=== PATIENT | male | born 1975 | race Caucasian/White ===

== ENCOUNTER 2019-05-06 13:53 | Outpatient (RCR) | payer OTHER, SELFPAY ==
--- NOTE | 2019-05-06 14:47 | PTOPEVAL ---
Thank you for referring this patient to [facility]. Please review, sign, date and return this plan of care [facility]. I agree with and certify that the following plan of care is medically necessary. Referring Physician Date Admitting Provider: Attending Provider: Ana Henriquez, SALES MANAGEMENT TRAINEE Referring Provider: *PT Outpatient Evaluation Start: 05/06/19 14:11 Freq: Status: Active Protocol: Document 05/06/19 14:10 J (Rec: 05/06/19 14:32 [facility] [id number]) Therapy Assessment Status Assessment Status Assessment Status Evaluation Evaluation Information Problem Diagnosis cervicalgia with radicaular R arm pain/numbness Onset 04/28/19 Subjective Information patient reports he has been Query Text:As Reported By Patient/ having pain and symptoms in Family the neck and into the R arm for about 15 years or more. he reports he does have a bluging disc in the neck and has had positive treatment with injection in the past. he reports he has had ulnar nerve surgery of the R hand. he has constant numbness in the small 3 digits of the r hand. he reports increased pain in the neck with sitting, prolonged positions, and increased head movements/ activity. he reports the neck feels stiff all the time. Prior Level of Function Comments Additional Prior Level of Function he reports he has been dealing Comments with neck pain for about 15 year. he reports he had no change in activity recently, but has had increased symptoms in the neck for about 6 months. he reports he is dropping items out of his R hand frequently. Pain Assessment Timing of Pain Assessment Timing of Pain Assessment Assessment Pain Scale Pain Scale Used Numeric (1 - 10) Self Report Pain Assessment Neck Reported Pain Level 4 Pain Description Tightness Pain Radiation Right Arm Radicular Pain Location r hand and fingers Pain Frequency Chronic,Continuous Current Pain Intensity 4 Lowest Pain Intensity 2
== END 2019-06-08 08:37 | disposition home or self-care (01) ==
LOC: CHSPT 13:53
PROVIDERS: PCP Nurse Practitioner Adult Health; Visit Provider Nurse Practitioner Adult Health
DX: M54.2 Cervicalgia (principal)
CPT/HCPCS: 97014; 97110; 97140; 97161; G0283

== ENCOUNTER 2019-07-07 15:04 | Outpatient (CLI) | payer OTHER, SELFPAY ==
--- NOTE | ~2019-07-07 | US_ITS ---
EXAMINATION: US renal BI DATE: 07/07/2019 15:33 INDICATION: Calculus of kidney. TECHNIQUE: Multiple ultrasound grayscale images of the kidneys were obtained. COMPARISON: CT abdomen and pelvis 07/07/2019 FINDINGS: The right kidney measures 11.2 x 5.1 x 4.8 cm. The left kidney measures 10.8 x 5.9 x 6.1 cm. The kidn eys demonstrate normal parenchymal echogenicity. There is no hydronephrosis. The bladder is normal. T here is diffuse hepatic steatosis. IMPRESSION: 1. Normal kidneys. No hydronephrosis. 2. Diffuse hepatic steatosis. Reviewed, dictated and finalized at location A.
--- NOTE | ~2019-07-07 | CT_ITS ---
EXAMINATION: CT abdomen pelvis wo con DATE: 07/07/2019 16:06 INDICATION: Right flank pain. TECHNIQUE: Computed tomography (CT) of the abdomen and pelvis was performed without intravenous contr ast. Automated exposure control and iterative reconstruction technique were employed. The dose-length product was 529.46 mGy-cm. COMPARISON: CT abdomen and pelvis 12/17/2017 FINDINGS: The visualized portions of the lung bases demonstrate mild atelectasis. There is a pneumato vanessa in right lower lobe. No pleural effusion. The heart size is normal. No pericardial effusion. The liver and gallbladder are normal. There is a 2.2 cm cyst in the spleen. The pancreas, adrenal glands , and right kidney are normal. There is a 1 mm stone in left kidney. There is a 5 mm cyst in left kid detxer. The prostate is mildly enlarged. There are no pathologically enlarged lymph nodes. There is no f ree intraperitoneal fluid. There is mild thoracic spondylosis and moderate lower lumbar spondylosis. IMPRESSION: 1. 1 mm nonobstructing left kidney stone. Reviewed, dictated and finalized at location A.
== END 2019-07-07 15:05 | disposition home or self-care (01) ==
PROVIDERS: PCP Family Medicine; Visit Provider Family Medicine
DX: N20.0 Calculus of kidney (principal); M54.5 Low back pain
CPT/HCPCS: 74176; 76775

== ENCOUNTER 2019-07-08 17:48 | Emergency (ER) | payer OTHER, SELFPAY ==
--- NOTE | 2019-07-08 18:05 | ED.BACK ---
HPI - Back Pain/Injury General Chief Complaint: Urogenital-Male Stated Complaint: kidney stone pain Time Seen by Provider: 07/08/19 18:05 Source: patient Mode of arrival: ambulatory Limitations: no limitations History of Present Illness HPI Narrative: 43-year-old man with history of urolithiasis comes in today complaining of right-sided back pain that has been present for the last several days. Patient states that he saw his doctor yesterday and had a workup. He states that he was told that his pain might be from a kidney stone or cyst on his kidney. With workup yesterday revealed a 1 mm stone and a 5 mm cyst on his left kidney. He denies nausea, vomiting, fever, hematuria, diarrhea and testicular pain. MD elicited complaint: back pain Pertinent past history: prior back pain and kidney stones Onset (ago): day(s) (3-4) Timing: constant Severity: severe Quality: sharp Location: right lower back Radiation: none Exacerbating factors: movement Relieving factors: none Related Data Home Medications Medication Instructions Recorded Confirmed atorvastatin 40 mg tablet 40 mg PO DAILY tablet 07/07/19 07/08/19 hydrocodone 7.5 mg-acetaminophen 1 tablet PO BID PRN tablet 07/07/19 07/08/19 325 mg tablet pregabalin 150 mg capsule 150 mg PO BID cap 07/07/19 07/08/19 Allergies Allergy/AdvReac Type Severity Reaction Status Date / Time No Known Allergies Allergy Verified 07/07/19 14:37 Review of Systems Constitutional: Constitutional: Denies chills, Denies fatigue, Denies fever(s) and Denies weakness Eyes: Eyes: Denies change in vision and Denies photophobia ENT: Denies dysphagia, Denies nasal congestion and Denies sore throat Cardiovascular: Cardiovascular: Denies chest pain and Denies radiating jaw, neck or arm pain Respiratory: Respiratory: Denies cough, Denies dyspnea and Denies wheezing Gastrointestinal: Gastrointestinal: Denies abdominal pain, Denies diarrhea, Denies nausea and Denies vomiting Genitourinary: Genitourinary: Denies hematuria, Denies dysuria and Denies urinary frequency Musculoskeletal: Musculoskeletal: Reports as per HPI, Denies arthralgias and Denies joint swelling Integumentary/Breasts: Skin/Breast: Denies pruritus, Denies erythema and Denies rash Neurologic: Denies vertigo, Denies dizziness and Denies syncope Endocrine: Endocrine: Denies excessive sweating and Denies polydipsia Hematologic/Lymphatic: Hematologic/Lymphatic: Denies easy bleeding and Denies easy bruising Allergic/Immunologic: Allergic/Immunologic: Denies lip swelling and Denies wheezing [facility] Social History Social History Smoking packs per day: 1 Smoking cigarettes per day: 20.0 Smoking status: Current every day smoker Alcohol intake: current Substance use: never Substance use type: does not use Exam Const: General: healthy appearing and alert Orientation/consciousness: patient oriented x3 Limitations: no limitations Other: Moderate acute distress HENMT: Mouth: Yes moist mucous membranes Eyes: Conjunctivae: conjunctivae normal Pupils: Equal, round and reactive pupils present EOM: EOMs intact bilaterally Resp: Effort & Inspection: normal respiratory effort and not labored Auscultation: clear to auscultation bilaterally, no rales, no rhonchi and no wheezes Cardio: Rate: regular rate Rhythm: regular rhythm Heart sounds: no murmurs GI: Inspection: non-distended Auscultation: normal bowel sounds Other: No tenderness, mass, small. No kidney tenderness bilaterally. Skin: General skin exam: normal color, no jaundice and no pallor Rashes: no rashes Neuro: General: patient oriented x3, moves all extremities, no focal motor deficits and CN's II-XI intact bilaterally Extrem: General: normal to inspection and clubbing, cyanosis or edema noted Psych: Appearance: grossly normal and well kempt Mental Status: mental status grossly normal Affect: n
[2019-07-08 18:06] VITALS: BP 129/68; PULSE 83; RESP 20; TEMP 36.9; O2SAT 94
[2019-07-08] MEDS: KETOROLAC (*BKC) 60 MG/2 ML VIAL IM (18:20)
[2019-07-08 18:25] LABS: Basophils Absolute Auto 0.03 K/mm3 (0.00-0.10); Basophils Percent Auto 0.4 % (0.0-1.0); Eosinophils Absolute Auto 0.24 K/mm3 (0.02-0.50); Eosinophils Percent Auto 2.9 % (1.0-6.0); Hematocrit 41.3 % (40.0-54.0); Hemoglobin 13.8 g/dL (14.0-18.0); Immature Granulocyte Absolute 0.02 K/mm3 (0.00-0.00); Immature Granulocyte Percent A 0.2 % (0.0-0.0); Lymphocytes Absolute Auto 2.08 K/mm3 (1.10-4.50); Lymphocytes Percent Auto 25.5 % (18.0-42.0); Mean Corpuscular HGB Conc 33.4 g/dL (32.0-36.0); Mean Corpuscular Hemoglobin 30.2 pg (27.0-31.0); Mean Corpuscular Volume 90.4 fL (78.0-102.0); Mean Platelet Volume 11.1 fl (8.7-11.0); Monocytes Absolute Auto 0.54 K/mm3 (0.10-0.90); Monocytes Percent Auto 6.6 % (2.0-11.0); Neutrophils Absolute Auto 5.3 K/mm3 (1.7-7.2); Neutrophils Percent Auto 64.4 % (50.0-70.0); Platelet Count Result 169 K/mm3 (150-420); Red Blood Count 4.57 M/mm3 (4.70-6.10); Red Cell Distribution Width 13.5 % (11.6-14.4); White Blood Count 8.2 K/mm3 (4.8-10.8)
[2019-07-08 18:40] LABS: Alanine Aminotransferase 28 U/L (16-63); Albumin Level 3.3 g/dL (3.4-5.0); Alkaline Phosphatase 92 U/L (46-116); Anion Gap 11.3 mmol/L (7-16); Aspartate Amino Transferase 22 U/L (15-37); Bilirubin,Total 0.5 mg/dL (0.00-1.00); Blood Urea Nitrogen 17 mg/dL (7-18); Calcium 8.7 mg/dL (8.5-10.1); Carbon Dioxide 26 mmol/L (21-32); Chloride 107 mmol/L (98-108); Estimated CRCL calculation 100 ml/min; Estimated Glomerular Filt Rate > 60; Glucose 87 mg/dL (70-99); Osmolality Calculated 290 mOsm/kg (285-295); Potassium 4.3 mmol/L (3.5-5.1); Sodium 140 mmol/L (136-145); Total Protein 6.1 g/dL (6.4-8.2)
[2019-07-08 18:41] LABS: CRP 0.5 mg/dL (0.0-0.9)
[2019-07-08 19:08] LABS: Add Urine Microscopic? NO; Appearance Urine Clear (Clear); Bilirubin Urine Negative (Negative); Blood Urine Negative (Negative); Color Urine Yellow (Yellow); Glucose Urine UA Negative (Negative); Ketones Urine Negative (Negative); Leukocyte Esterase Ur Negative (Negative); Nitrate Urine Negative (Negative); Protein Urine Negative (Negative); Specific Grav Ur 1.015 (1.010-1.020); Urobilinogen Urine 0.2 mg/dL (0.2-1.0)
[2019-07-08 19:28] VITALS: BP 122/71; PULSE 75; RESP 18; O2SAT 99
== END 2019-07-08 19:28 | disposition home or self-care (01) ==
PROVIDERS: Emergency Provider Emergency Medicine; PCP Family Medicine
DX: M54.5 Low back pain (principal)
CPT/HCPCS: 36415; 80053; 81003; 85025; 86140; 96372; 99283; J1885

== ENCOUNTER 2019-12-21 13:41 | Outpatient (RCR) | payer OTHER, SELFPAY ==
--- NOTE | 2019-12-21 15:04 | PTOPEVAL ---
Thank you for referring Milton Strickland to [facility].? The patient is scheduled to be seen for therapy? ____x/week for ___ weeks. Please review, sign, date and return this plan of care WILL[facility]. I agree with and certify that the following plan of care is medically necessary. Referring Physician Date Admitting Provider: Attending Provider: Ana Henriquez, SUPERVISOR ADULT EDUCATION Referring Provider: *PT Outpatient Evaluation Start: 12/21/19 13:51 Freq: Status: Active Protocol: Document 12/21/19 13:54 MARK (Rec: 12/21/19 14:33 [facility] [id number]) Therapy Assessment Status Assessment Status Assessment Status Evaluation Outpatient Past Medical History Cardiovascular History Hx Hypercholesterolemia Yes Musculoskeletal History Hx Back Pain Yes Evaluation Information Problem Diagnosis low back pain Onset 12/16/19 Additional Evaluation Detail Oswestry=64% limitation Subjective Information Pt. reports that he has hx of Query Text:As Reported By Patient/ chronic low back pain. He has Family had 2 surgeries in the past consisting of disectomy and scrapping bone spurs. He reports that he is currently undergoing pain management for his chronic low back pain. He describes pain located in the middle of the low back. He states standing or sitting in one position will increase his pain. He reports pain is constant. He states that he enjoys fishing but cannot stand for more than 45 minutes before experincing intense back pain. He reports that his goal is to decrease is low back pain. 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
--- NOTE | 2020-01-26 09:59 | PTOPEVAL ---
Thank you for referring Milton Strickland to [facility].? The patient is scheduled to be seen for therapy? ____x/week for ___ weeks. Please review, sign, date and return this plan of care WILLY. I agree with and certify that the following plan of care is medically necessary. Referring Physician Date Admitting Provider: Attending Provider: Ana Henriquez, HOTBED LEVER OPERATOR Referring Provider: *PT Outpatient Evaluation Start: 12/21/19 13:51 Freq: Status: Discharge Protocol: Document 01/16/20 09:55 MARK (Rec: 01/16/20 11:04 MARK [email or web address]) Therapy Assessment Status Assessment Status Assessment Status Discharge Outpatient Past Medical History Cardiovascular History Hx Hypercholesterolemia Yes Musculoskeletal History Hx Back Pain Yes Evaluation Information Problem Diagnosis low back pain Onset 12/16/19 Subjective Information Pt. reports that pain Query Text:As Reported By Patient/ intensity has slightly Family decreased. He reports that exercise helps to reduce pain signficantly. He states he has returned to fishing with improved comfort. Pain Assessment Pain Scale Pain Scale Used Numeric (1 - 10) Self Report Pain Assessment Lower Back Reported Pain Level 5 Greatest Pain Intensity 5 Pain Score Pain Score 5: Self Report Cervical and Lumbar ROM Lumbar ROM Lumbar Flexion Active Ankle Query Text:Hands to: Lumbar Extension (0-40) 10 Query Text:Active in Degrees Cervical and Lumbar Muscle Testing Lumbar Strength Upper Abdominal Strength 4 Good Lower Abdominal Strength 3+Fair+ Lower Extremity Muscle Strength Testing General Lower Extremity Strength Gross Lower Extremity Strength bilateral hip flexion 5/5 bilateral hip abduction 4+/5 bilateral knee flexion 5/5 bilateral knee extension 5/5 bilateral ankle dorsiflexon 5/ 5 Muscle Length Testing Muscle Length Testing Left Hamstring Length 20 Query Text:(90 - 90 Position) Right Hamstring Length 20 Query Text:(90 - 90 Position) Gait Assessment Gait Assessment Additional Ambulation Comments Pt. ambulates without deviation on this date. General Exercise General Exercises Exercise Description -bird dog on stability ball x Query Text:Record Sets, Reps, 10 bilateral Resistance, and Position -pot stirrers x 30 bilateral -HS stretch x 2 minutes
== END 2020-01-16 13:07 | disposition home or self-care (01) ==
LOC: CHSPT 13:41
PROVIDERS: Visit Provider Nurse Practitioner Adult Health
DX: M47.816 Spondylosis without myelopathy or radiculopathy, lumbar region (principal)
CPT/HCPCS: 97014; 97110; 97161; G0283

== ENCOUNTER 2019-12-28 10:50 | Outpatient (CLI) | payer OTHER, SELFPAY ==
--- NOTE | ~2019-12-28 | XR_ITS ---
XR lumbar spine 2-3V 12/28/2019 11:24 Indication: Spondylosis Procedure: 4 views lumbar spine Comparison: No prior studies for comparison. Findings: Mild levocurvature of the lumbar spine. There is disc narrowing at all lumbar levels. No ev idence for spondylolisthesis. No acute fracture or traumatic malalignment. Pedicles intact. Impression: 1: Mild lumbar spondylosis. Reviewed, dictated and finalized at location B. Impression: 1: Mild lumbar spondylosis.
== END 2019-12-28 10:51 | disposition home or self-care (01) ==
PROVIDERS: PCP Family Medicine; Visit Provider Nurse Practitioner Adult Health
DX: M47.816 Spondylosis without myelopathy or radiculopathy, lumbar region (principal)
CPT/HCPCS: 72100

== ENCOUNTER 2022-03-24 13:08 | Emergency (ER) | payer OTHER, SELFPAY ==
--- NOTE | ~2022-03-24 | CT_ITS ---
EXAMINATION: CT lumbar spine wo con DATE: 03/24/2022 14:14 INDICATION: Worsened chronic low back pain. TECHNIQUE: Computed tomography (CT) of the lumbar spine was performed without intravenous contrast. A utomated exposure control and iterative reconstruction technique were employed. The dose-length produ ct was 1520.77 mGy-cm. COMPARISON: Lumbar spine radiographs 12/28/2019 FINDINGS: There is 3 mm retrolisthesis of L2 on L3, L3 on L4, and L4 on L5. There are Schmorl's nodes at multiple levels. There is mildly decreased disc height at L1-L2 and L2-L3 and moderately decrease d disc height from L3-L4 through L5-S1 with endplate remodeling. The following disc levels are specif ically discussed: L1-L2: The disc is bulging. There is mild bilateral facet joint osteoarthritis. There is mild bilater al neural foraminal stenosis. There is mild central canal stenosis. L2-L3: The disc is bulging. There is mild bilateral facet joint osteoarthritis. There is mild bilater al neural foraminal stenosis. There is mild central canal stenosis. L3-L4: The disc is bulging. There is moderate bilateral facet joint osteoarthritis. There is moderate bilateral neural foraminal stenosis. There is mild central canal stenosis. L4-L5: The disc is bulging. There is severe bilateral facet joint osteoarthritis. There is moderate b ilateral neural foraminal stenosis. There is mild central canal stenosis with posterior decompression . L5-S1: The disc is bulging. There is severe bilateral facet joint osteoarthritis. There is moderate b ilateral neural foraminal stenosis. There is no central canal stenosis. IMPRESSION: 1. Moderate lumbar spondylosis. Reviewed, dictated and finalized at location A. L PAINTER
[2022-03-24 13:20] VITALS: BP 113/84; PULSE 87; RESP 16; TEMP 36.6; O2SAT 97
--- NOTE | 2022-03-24 13:32 | ED.BACK ---
HPI - Back Pain/Injury General Chief Complaint: Back Pain/Injury Stated Complaint: back pain possible kidney stone Time Seen by Provider: 03/24/22 13:31 Source: patient Mode of arrival: ambulatory History of Present Illness HPI Narrative: 46-year-old male with a history of chronic low back pain, status post diskectomy L3/4 and L4/5 in 2016 with chronic paresthesias of the lower extremities presents with -- low back pain which radiates to either side. No radiation of the pain to the lower extremities. No new paresthesias of the lower extremities. No bladder or bowel involvement. The patient has had intermittent low back pain but this current episode is much more painful. History of kidney stones. No fever or chills. MD elicited complaint: back pain Pertinent past history: prior back pain and kidney stones Onset (ago): day(s) ( chronic pain with worsening over the past 2 days.) Timing: constant Severity: severe Similar Symptoms Previously: Yes Quality: aching Location: lumbar spine Radiation: left upper leg and right upper leg Exacerbating factors: movement Relieving factors: immobilization Associated symptoms: denies other symptoms Work related injury: No Related Data Allergies Allergy/AdvReac Type Severity Reaction Status Date / Time No Known Allergies Allergy Verified 03/24/22 13:33 Review of Systems Review of Systems: All systems reviewed & are unremarkable except as noted in HPI and below Constitutional: Constitutional: Reports as per HPI and Reports no additional constitutional complaints Eyes: Eyes: Reports as per HPI and Reports no additional eye complaints ENT: Reports system reviewed and no additional complaints, except as documented and Reports as per HPI Cardiovascular: Cardiovascular: Reports as per HPI and Reports no additional cardiovascular complaints Respiratory: Respiratory: Reports as per HPI and Reports no additional respiratory complaints Gastrointestinal: Gastrointestinal: Reports as per HPI and Reports no additional gastrointestinal complaints Genitourinary: Genitourinary: Reports no additional male genitourinary complaints and Reports as per HPI Musculoskeletal: Musculoskeletal: Reports no additional musculoskeletal complaints, Reports as per HPI and Reports back pain Comments: Low back pain with chronic paresthesias of lower extremities Integumentary/Breasts: Skin/Breast: Reports system reviewed and no additional complaints, except as docu and Reports as per HPI Neurologic: Reports system reviewed and no additional complaints, except as documented and Reports as per HPI Endocrine: Endocrine: Reports no additional endocrine complaints and Reports as per HPI Hematologic/Lymphatic: Hematologic/Lymphatic: Reports no additional hematologic/lymphatic complaints and Reports as per HPI Allergic/Immunologic: Allergic/Immunologic: Reports no additional allergic/immunologic complaints and Reports as per HPI PMFSH Past Medical History Medical History (Updated 03/24/22 @ 15:17 by Costa Pope MD) Cubital tunnel syndrome on right Kidney stones, calcium oxalate Surgical History Surgical History History of back surgery History of hip surgery Family History Family History Mother Family history of type 2 diabetes mellitus Social History Social History Smoking packs per day: 1 Smoking cigarettes per day: 20.0 Smoking status: Current every day smoker Alcohol intake: current Substance use: never Substance use type: does not use Exam Const: General: healthy appearing and no acute distress Nutritional Appearance: well nourished Orientation/consciousness: patient oriented x3 Limitations: no limitations HENMT: Head: normal to inspection Ears: external ears normal Face/Nose/Sinus: Normal external no
[2022-03-24] MEDS: MORPHINE SULFATE (*CRX) 4 MG/ML INJ IM (13:53)
[2022-03-24] MEDS: ONDANSETRON HCL ODT 4 MG TABLET PO (13:54)
[2022-03-24 14:51] LABS: Add Urine Microscopic? NO; Appearance Urine Clear (Clear); Bilirubin Urine Negative (Negative); Blood Urine Negative (Negative); Color Urine Light Yellow (Yellow); Glucose Urine UA Negative (Negative); Ketones Urine Negative (Negative); Leukocyte Esterase Ur Negative LEU/UL (Negative); Nitrate Urine Negative (Negative); Protein Urine Negative (Negative)
[2022-03-24] MEDS: KETOROLAC 30 MG/ML VIAL (*BKC) IM (15:20)
== END 2022-03-24 15:33 | disposition home or self-care (01) ==
PROVIDERS: Emergency Provider Internal Medicine Critical Care Medicine
DX: M54.50 Low back pain, unspecified (principal); M47.816 Spondylosis without myelopathy or radiculopathy, lumbar region
CPT/HCPCS: 72131; 81003; 96372; 99284; A9270; J1885; J2270

== ENCOUNTER 2022-03-27 13:25 | Outpatient (CLI) | payer OTHER, SELFPAY ==
[2022-03-27 13:40] LABS: Hematocrit 46.6 % (40.0-54.0); Hemoglobin 15.6 g/dL (14.0-18.0); Mean Corpuscular HGB Conc 33.5 g/dL (32.0-36.0); Mean Corpuscular Hemoglobin 30.2 pg (27.0-31.0); Mean Corpuscular Volume 90.3 fL (78.0-102.0); Mean Platelet Volume 11.3 fl (8.7-11.0); Platelet Count Result 213 K/mm3 (150-420); Red Blood Count 5.16 M/mm3 (4.70-6.10); White Blood Count 15.8 K/mm3 (4.8-10.8)
[2022-03-27 14:15] LABS: Alanine Aminotransferase 25 U/L (16-63); Albumin Level 3.8 g/dL (3.4-5.0); Alkaline Phosphatase 87 U/L (46-116); Anion Gap 7 mmol/L (8-16); Aspartate Amino Transferase 15 U/L (15-37); Bilirubin,Total 0.6 mg/dL (0.00-1.00); Blood Urea Nitrogen 17 mg/dL (7-18); Carbon Dioxide 29 mmol/L (21-32); Chloride 104 mmol/L (98-108); Cholesterol 217 mg/dL (0-200); Estimated Glomerular Filt Rate > 60; Glucose 88 mg/dL (70-99); HDL Direct 53 mg/dL (40-60); LDL Cholesterol Calculated 150 mg/dL (<130); Osmolality Calculated 290 mOsm/kg (285-295); Potassium 4.4 mmol/L (3.5-5.1); Sodium 140 mmol/L (136-145); Triglycerides 69 mg/dL (0-150)
== END 2022-03-27 13:26 | disposition home or self-care (01) ==
LOC: CHSLAB 13:27
PROVIDERS: PCP Family Medicine; Visit Provider Family Medicine
DX: Z00.00 Encounter for general adult medical examination without abnormal findings (principal)
CPT/HCPCS: 36415; 80053; 80061; 85027

== ENCOUNTER 2022-03-29 08:09 | Outpatient (CLI) | payer OTHER, SELFPAY ==
--- NOTE | ~2022-03-29 | MR_ITS ---
EXAMINATION: MR lumbar spine wo con DATE: 03/29/2022 11:05 INDICATION: Low back pain TECHNIQUE: Magnetic resonance imaging (MRI) of the lumbar spine was performed without intravenous con trast. Sequences included sagittal T2-weighted FSE, sagittal T2-weighted FS FSE, sagittal T1-weighted FSE, and axial T2-weighted FSE. COMPARISON: Lumbar spine CT dated 03/24/2022 FINDINGS: Again seen is 203 mm retrolisthesis L2 on L3, L3 on L4 and L4 on L5. Vertebral body heights are lucila l. Normal marrow signal. Mild disc height loss at L2-L3 and moderate disc height loss at L3-L4, L4-L 5 and L5-S1. The conus medullaris terminates at L1. There is normal signal in the caudal spinal cord. Paravertebral soft tissues are unremarkable. The following disc levels are specifically discussed: T12-L1: The disc does not extend beyond the endplate margin. There is mild bilateral facet joint oste oarthritis. There is no neural foraminal stenosis. There is no central canal stenosis. L1-L2: Disc is mildly bulging. There is mild bilateral facet joint osteoarthritis. There is mild bila teral neural foraminal stenosis. There is mild central canal stenosis. L2-L3: Disc is bulging. There is mild bilateral facet joint osteoarthritis. There is moderate right a nd mild left neural foraminal stenosis. There is mild central canal stenosis. L3-L4: Disc is bulging. There is moderate bilateral facet joint osteoarthritis. There is moderate moses ateral neural foraminal stenosis. There is mild central canal stenosis. L4-L5: Disc is bulging. There is moderate to severe bilateral facet joint osteoarthritis. There is mo derate right and moderate to severe left neural foraminal stenosis. There is mild central canal steno sis. L5-S1: Disc is mildly bulging. There is moderate right and moderate to severe left facet joint osteoa rthritis. There is moderate right and moderate to severe left neural foraminal stenosis. There is no central canal stenosis. IMPRESSION: 1. Moderate lumbar spondylosis. Reviewed, dictated and finalized at location B. EYING TECHNICIAN
== END 2022-03-29 08:10 | disposition home or self-care (01) ==
LOC: CHSIMG 08:10
PROVIDERS: PCP Family Medicine; Visit Provider Family Medicine
DX: G89.29 Other chronic pain (principal); M54.9 Dorsalgia, unspecified; M43.06 Spondylolysis, lumbar region
CPT/HCPCS: 72148

== ENCOUNTER 2022-03-31 07:54 | Outpatient (RCR) | payer OTHER, SELFPAY ==
--- NOTE | 2022-03-31 07:59 | PTOPEVAL1 ---
Assessment and note entered by JT File, PT Evaluation Information Assessment Status Evaluation Diagnosis dorsalgia Onset 02/11/22 Subjective Information patient reports he is coming to therapy for pain in his lower back. he reports a few years ago he had therapy for the lower jagdish after tweaking it. he reports he has since tweaked it again, and it is now worse. he reports he has a new set of CT and MRI in the system. 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 he reports he has increased pain in the lower back as the day goes on. he reports porlonged standing and sitting will both bother him. he has had 2 mircodiscectomies in the past. he reports currently he has numbness and tingling down the L LE. he reports these symptoms are constant in the L LE. Reported Pain Level Pain Score 6: Self Report Assessment PT Clinical Summary mr. santa presents to skilled PT services for evaluation and treatment of a flare up of lower back pain from DDD. he presents this date with deficits in lumbar rom, core strength, L LE strength, sensation changes in the L upper thigh, and pain in the lower back and L LE. he would do well to attend skilled PT to improve his objective /functional deficits and progerss towards a return to his prior level functional performance and quality of life. Plan of Care Interventions Electrical Stimulation,Gait Training,Hot Pack/Cold Pack,Manual Therapy,Neuro Re-education,Patient/ Caregiver Educati,Therapeutic Activities, Therapeutic Exercise PT Services Indicated Yes Treatment Frequency and 2x weekly for 12 visits Duration These treatments will address the objective and functional deficits as defined above. The patient will be advanced safely and appropriately in order for the patient to progress towards his/her prior level of function. Additional exercises will be introduced and as well as a comprehensive home exercise program upon discharge, if needed, ?to ensure carryover of functional gains achieved in the clinic. This treatment plan has been reviewed and agreement upon by the patient.
== END 2022-05-06 10:07 | disposition home or self-care (01) ==
LOC: CHSPT 07:54
PROVIDERS: PCP Family Medicine; Visit Provider Family Medicine
DX: M54.9 Dorsalgia, unspecified (principal); G89.29 Other chronic pain
CPT/HCPCS: 97012; 97014; 97110; 97140; 97161; G0283

== ENCOUNTER 2022-05-22 02:20 | Day surgery (SDC) | payer OTHER, SELFPAY ==
[2022-05-16 14:10] VITALS: BMI 29.0
[2022-05-22 07:46] VITALS: BP 108/59; PULSE 104; RESP 17; TEMP 36.2; O2SAT 99; BMI 28.3
[2022-05-22] MEDS: LACTATED RINGERS 1,000 ML 150 ML IV CONT (07:56)
--- NOTE | 2022-05-22 08:10 | WPDANESEPPF ---
Anes - Initial Pre Proc Eval Procedure: Operation Date: 05/22/22 08:30 Proposed Procedures p Colonoscopy - Nikita Figueroa DO Date/Time: 05/22/22 08:10 Surgeon: Nikita Figueroa DO Pre Op Diagnosis: positive cologuard Patient Data Age: 46 Gender: M Height: 1.98 m Weight: 111 kg Last Vital Signs Temp 36.2 C L 05/22/22 07:46 Pulse 104 H 05/22/22 07:46 Resp 17 05/22/22 07:46 BP 108/59 L 05/22/22 07:46 Pulse Ox 99 05/22/22 07:46 O2 Del Method Room Air 05/22/22 07:46 Allergies Allergy/AdvReac Type Severity Reaction Status Date / Time No Known Allergies Allergy Verified 05/22/22 07:45 Home Medications Medication Instructions Recorded Confirmed Type nicotine 21 mg/24 hr daily 1 patch transdermal DAILY #28 ea 03/27/22 05/22/22 Rx transdermal patch cyclobenzaprine 10 mg tablet 10 mg PO TID PRN muscle spasm #30 04/17/22 05/22/22 Rx tabs diclofenac sodium 50 mg 50 mg PO Q12H PRN pain #20 tabs 04/17/22 05/22/22 Rx tablet,delayed release hydrocodone 5 mg-acetaminophen 325 1 tablet PO Q8H PRN pain #20 tabs 04/17/22 05/22/22 Rx mg tablet Patient hx anesthesia problems: none Family hx anesthesia problems: none Results Review: All pre-operative results and documents have been reviewed as part of the pre-operative evaluation. [facility] Past Medical History Medical History Cubital tunnel syndrome on right Kidney stones, calcium oxalate Surgical History Surgical History History of back surgery History of hip surgery Family History Family History Mother Family history of type 2 diabetes mellitus Social History Social History Smoking packs per day: 1.5 Smoking cigarettes per day: 30.0 Years smoked: 25 Smoking pack-years: 37.50 Smoking status: Current every day smoker Tobacco type: cigarettes Alcohol intake: current Substance use: never Substance use type: does not use Living arrangements: with family Spiritual care concerns: No Anes - Eval Final PreProcedure Day of Procedure 05/22/22 08:10 Patient weight: overweight Heart: regular rate and rhythm Lungs: decreased breath sounds Airway: Mallampati scale class II Neurological: alert and oriented Last oral intake: >/= 8 hours ASA classification: III Emergent: no Anesthetic plan: proceed Anesthesia type and monitoring: general GIVS and standard monitoring Results Review: All pre-operative results and documents have been reviewed as part of the pre-operative evaluation. Informed Consent: The patient's anesthetic plan and its attendant risks and benefits were discussed with the patient/family/POA. Questions were solicited and answers provided to the satisfaction of the patient/family/POA.
--- NOTE | 2022-05-22 08:23 | PM.IMHP ---
H&P: HPI History of Present Illness Date/Time: 05/22/22 08:23 Chief Complaint: positive Cologuard Narrative: this is a 46-year-old man who presents for colonoscopy. He has never had a colonoscopy before. He had a recent Cologuard test that was positive. He denies any hematochezia or melena. He denies any family history of colon cancer. Review of Systems Review of Systems: All systems reviewed & are unremarkable except as noted in HPI and below Constitutional: Constitutional: Denies chills, Denies fever(s), Denies headache(s) and Denies weight loss Eyes: Eyes: Denies change in vision ENT: Denies dizziness, Denies headache(s), Denies neck mass and Denies throat swelling Cardiovascular: Cardiovascular: Denies chest pain, Denies lightheadedness and Denies dyspnea Respiratory: Respiratory: Denies cough, Denies dyspnea and Denies wheezing Gastrointestinal: Gastrointestinal: Denies abdominal pain, Denies change in bowel habits, Denies nausea and Denies vomiting Genitourinary: Genitourinary: Denies hematuria and Denies dysuria Musculoskeletal: Musculoskeletal: Reports as per HPI Integumentary/Breasts: Skin/Breast: Reports as per HPI Neurologic: Denies dizziness and Denies headache(s) Allergic/Immunologic: Allergic/Immunologic: Denies throat swelling and Denies wheezing PMFSH Past Medical History Medical History Cubital tunnel syndrome on right Kidney stones, calcium oxalate Surgical History Surgical History History of back surgery History of hip surgery Family History Family History Mother Family history of type 2 diabetes mellitus Social History Social History Smoking packs per day: 1.5 Smoking cigarettes per day: 30.0 Years smoked: 25 Smoking pack-years: 37.50 Smoking status: Current every day smoker Tobacco type: cigarettes Alcohol intake: current Substance use: never Substance use type: does not use Living arrangements: with family Spiritual care concerns: No Meds Home Medications and Allergies Home Medications Medication Instructions Recorded Confirmed Type nicotine 21 mg/24 hr daily 1 patch transdermal DAILY #28 ea 03/27/22 05/22/22 Rx transdermal patch cyclobenzaprine 10 mg tablet 10 mg PO TID PRN muscle spasm #30 04/17/22 05/22/22 Rx tabs diclofenac sodium 50 mg 50 mg PO Q12H PRN pain #20 tabs 04/17/22 05/22/22 Rx tablet,delayed release hydrocodone 5 mg-acetaminophen 325 1 tablet PO Q8H PRN pain #20 tabs 04/17/22 05/22/22 Rx mg tablet Allergies Allergy/AdvReac Type Severity Reaction Status Date / Time No Known Allergies Allergy Verified 05/22/22 07:45 Vital Signs Vital Signs - 24 hr 05/22/22 07:46 Temperature 36.2 C L Pulse Rate 104 H Respiratory Rate 17 Blood Pressure 108/59 L Pulse Oximetry 99 Oxygen Delivery Room Air Exam Const: General: no acute distress and alert Orientation/consciousness: patient oriented x3 HENMT: Head: normocephalic and atraumatic Ears: hearing grossly normal bilaterally Face/Nose/Sinus: Normal nares present Mouth: Yes Normal oral and palatal mucosa present Eyes: Periorbital: periorbital findings normal Sclera: sclerae normal EOM: EOMs intact bilaterally Neck: Neck: normal visual inspection, no lymphadenopathy and trachea midline Chest: Chest palpation & inspection: normal inspection of the chest Resp: Effort & Inspection: normal respiratory effort Auscultation: clear to auscultation bilaterally Cardio: Jugular venous distension: no JVD Rate: regular rate Rhythm: regular rhythm Heart sounds: S1 normal heart sound present and S2 normal heart sound present Peripheral pulses: Peripheral pulses 2+ throughout GI: Inspection: normal to inspection GI Palp: Yes Sof
[2022-05-22 09:15] VITALS: BP 83/57; PULSE 105; RESP 23; O2SAT 94
[2022-05-22 09:25] VITALS: BP 106/64; PULSE 87; RESP 15; O2SAT 95
[2022-05-22 09:35] VITALS: BP 105/61; PULSE 78; RESP 18; O2SAT 97
== END 2022-05-22 09:44 | disposition home or self-care (01) ==
PROVIDERS: PCP Family Medicine; Visit Provider Surgery
PROC: 0DJD8ZZ Inspection of Lower Intestinal Tract, Via Natural or Artificial Opening Endoscopic (ICD-10-PCS; CPT 45378; principal; 2022-05-22 08:30)
DX: R19.5 Other fecal abnormalities (principal); K63.5 Polyp of colon; K62.1 Rectal polyp; K64.8 Other hemorrhoids; F17.210 Nicotine dependence, cigarettes, uncomplicated
CPT/HCPCS: 45380; 88305; J2704; J7120

== ENCOUNTER 2022-06-30 13:54 | Outpatient (CLI) | payer OTHER, SELFPAY ==
[2022-06-30 14:15] LABS: Hematocrit 48.8 % (40.0-54.0); Hemoglobin 16.5 g/dL (14.0-18.0); Mean Corpuscular HGB Conc 33.8 g/dL (32.0-36.0); Mean Corpuscular Hemoglobin 30.3 pg (27.0-31.0); Mean Corpuscular Volume 89.5 fL (78.0-102.0); Mean Platelet Volume 10.7 fl (8.7-11.0); Platelet Count Result 215 K/mm3 (150-420); Red Blood Count 5.45 M/mm3 (4.70-6.10); Red Cell Distribution Width 13.4 % (11.6-14.4)
[2022-06-30 15:05] LABS: Alanine Aminotransferase 28 U/L (16-63); Albumin Level 3.6 g/dL (3.4-5.0); Alkaline Phosphatase 105 U/L (46-116); Anion Gap 9 mmol/L (8-16); Aspartate Amino Transferase 18 U/L (15-37); Bilirubin,Total 0.6 mg/dL (0.00-1.00); Blood Urea Nitrogen 14 mg/dL (7-18); Calcium 9.4 mg/dL (8.5-10.1); Carbon Dioxide 29 mmol/L (21-32); Chloride 105 mmol/L (98-108); Estimated Glomerular Filt Rate > 60; Folic Acid 5.4 ng/mL (8.6->20); Glucose 73 mg/dL (70-99); Osmolality Calculated 295 mOsm/kg (285-295); Potassium 4.7 mmol/L (3.5-5.1); Sodium 143 mmol/L (136-145); Total Protein 6.9 g/dL (6.4-8.2); Vitamin B12 448 pg/mL (193-986)
[2022-07-03 16:05] LABS: Lyme Disease Ab (IgM), Blot Negative (Negative); Lyme Disease Ab(IgG), Blot Negative (Negative)
[2022-07-05 03:58] LABS: Hepatitis A Antibody IgM Nonreactive; Hepatitis B Core Antibody Nonreactive (Nonreactive); Hepatitis B Surface Antigen Nonreactive (Nonreactive); Hepatitis C Signal to Cutoff 0.02 ratio (<1.00); Hepatitis C Virus Antibody Nonreactive (Nonreactive)
== END 2022-06-30 13:55 | disposition home or self-care (01) ==
LOC: CHSLAB 13:56
PROVIDERS: PCP Family Medicine; Visit Provider Family Medicine
DX: E11.9 Type 2 diabetes mellitus without complications (principal); R74.01 Elevation of levels of liver transaminase levels; R53.82 Chronic fatigue, unspecified; E53.8 Deficiency of other specified B group vitamins
CPT/HCPCS: 36415; 80053; 80074; 82607; 82746; 84443; 85027; 86617; 86666

== ENCOUNTER 2023-03-05 20:03 | Emergency (ER) | payer OTHER, SELFPAY ==
--- NOTE | ~2023-03-05 | XR_ITS ---
XR hand RT min 3V DATE: 03/05/2023 20:17 INDICATION: Right hand pain across metacarpals. Struck a wall one hour prior. TECHNIQUE: 3 views COMPARISON: None FINDINGS: There is suggestion of old healed boxer's fracture of fifth metacarpal bone. There is a recent fourth metacarpal neck fracture without displacement, with mild apex posterior angu lation. No other fracture or dislocation or periosteal reaction or bone destruction, erosive change or chondr ocalcinosis. IMPRESSION: Nondisplaced fourth metacarpal neck fracture with mild apex dorsal angulation Reviewed, dictated and finalized at location A. WAGON OPERATOR
[2023-03-05 20:20] VITALS: BP 132/90; PULSE 96; RESP 18; TEMP 36.7; O2SAT 100
[2023-03-05] MEDS: KETOROLAC 30 MG/ML VIAL (*BKC) IM (20:23)
--- NOTE | 2023-03-05 20:27 | ED.GENADULT ---
HPI - General Adult General Chief complaint: Extremity Injury, Upper Stated complaint: R hand Injury Time Seen by Provider: 03/05/23 20:05 History of Present Illness HPI narrative: Milton is a 47M with a PMH of KARTHIKEYAN, MDD, fatigue, tobacco abuse that presented to the ED after he hit a wall with his right hand. He says he has pain and it feels like her right 4th metacarpal is jammed. He still has sensation and can move all his digits. Related Data Allergies Allergy/AdvReac Type Severity Reaction Status Date / Time No Known Allergies Allergy Verified 03/05/23 20:07 Review of Systems Review of Systems: All systems reviewed & are unremarkable except as noted in HPI and below [facility] Past Medical History Medical History (Updated 03/05/23 @ 20:38 by Dick Brower DO) Cubital tunnel syndrome on right Kidney stones, calcium oxalate Surgical History Surgical History History of back surgery History of hip surgery Family History Family History Mother Family history of type 2 diabetes mellitus Social History Social History Smoking packs per day: 1.5 Smoking cigarettes per day: 30.0 Years smoked: 25 Smoking pack-years: 37.50 Smoking status: Current every day smoker Tobacco type: cigarettes Alcohol intake: current Substance use: never Substance use type: does not use Living arrangements: with family Spiritual care concerns: No Exam Const: General: cooperative, healthy appearing, comfortable, no acute distress, well developed, alert, awake and Physically active Orientation/consciousness: oriented to person, oriented to place and oriented to time HENMT: Head: normal to inspection, normocephalic and atraumatic Ears: hearing grossly normal bilaterally and external ears normal Face/Nose/Sinus: Normal external nose present Eyes: General: appearance normal, both eyes and all related structures Periorbital: periorbital findings normal Sclera: sclerae normal Pupils: Equal, round and reactive pupils present Neck: Neck: normal visual inspection Chest: Chest palpation & inspection: normal inspection of the chest Resp: Effort & Inspection: normal respiratory effort, able to speak in complete sentences and no respiratory distress Cardio: Jugular venous distension: no JVD Skin: General skin exam: normal color and no rashes or lesions noted Neuro: General: oriented to person, oriented to place and oriented to time Cranial nerves: Yes Equal, round and reactive pupils present Extrem: General: normal to inspection Other: right hand was TTP over the 4th metacarpal Course Course Emergency Course: XR hand RT min 3V DATE: 03/05/2023 20:17 INDICATION: Right hand pain across metacarpals. Struck a wall one hour prior.? TECHNIQUE: 3 views? COMPARISON: None? FINDINGS: There is suggestion of old healed boxer's fracture of fifth metacarpal bone. There is a recent fourth metacarpal neck fracture without displacement, with mild apex posterior angulation. No other fracture or dislocation or periosteal reaction or bone destruction, erosive change or chondrocalcinosis. IMPRESSION: Nondisplaced fourth metacarpal neck fracture with mild apex dorsal angulation Hand was placed in an ulnar gutter splint Vital Signs Vital signs: Vital Signs Temperature 98.0 F 03/05/23 20:20 Pulse Rate 96 03/05/23 20:20 Respiratory Rate 18 03/05/23 20:20 Blood Pressure 132/90 03/05/23 20:20 Pulse Oximetry 100 03/05/23 20:20 Oxygen Delivery Room Air 03/05/23 20:20 Temperature 98.0 F 03/05/23 20:20 Pulse Rate 96 03/05/23 20:20 Respiratory Rate 18 03/05/23 20:20 Blood Pressure 132/90 03/05/23 20:20 Pulse Oximetry 100 03/05/23 20:20 Oxygen Delivery Room Air 03/05/23 20:20 Medical Decision Making Vital Sign
[2023-03-05 20:57] VITALS: PULSE 70; RESP 16; TEMP 36.5; O2SAT 95
== END 2023-03-05 21:00 | disposition home or self-care (01) ==
PROVIDERS: Emergency Provider Family Medicine; PCP Family Medicine
DX: S62.364A Nondisplaced fracture of neck of fourth metacarpal bone, right hand, initial encounter for closed fracture (principal); F17.210 Nicotine dependence, cigarettes, uncomplicated; W22.09XA Striking against other stationary object, initial encounter
CPT/HCPCS: 29125; 73130; 96372; 99284; A4565; J1885

== ENCOUNTER 2023-03-16 08:42 | Outpatient (CLI) | payer OTHER, SELFPAY ==
--- NOTE | ~2023-03-16 | XR_ITS ---
XR hand RT min 3V 03/16/2023 09:05 Indication: Right hand pain Procedure: 3 views right hand Comparison: 03/05/2023 Findings: There is 80 fracture fourth metacarpal neck with stable alignment. There is a healed fifth metacarpal neck fracture. No significant soft tissue abnormality. No foreign bodies. Impression: 1: Stable alignment of nondisplaced right fourth metacarpal neck fracture. Reviewed, dictated and finalized at location B. MEN'S TENNIS COACH Impression: 1: Stable alignment of nondisplaced right fourth metacarpal neck fracture.
== END 2023-03-16 08:43 | disposition home or self-care (01) ==
LOC: CHSIMG 08:44
PROVIDERS: PCP Family Medicine; Visit Provider Orthopaedic Surgery
DX: S62.364A Nondisplaced fracture of neck of fourth metacarpal bone, right hand, initial encounter for closed fracture (principal); M79.641 Pain in right hand
CPT/HCPCS: 73130

== ENCOUNTER 2023-04-27 08:22 | Outpatient (CLI) | payer OTHER, SELFPAY ==
--- NOTE | ~2023-04-27 | XR_ITS ---
Right Hand Technique: PA, oblique, and lateral views were obtained. Clinical History: Fourth metacarpal fracture follow-up COMPARISON: 03/16/2023 Findings: Transverse fracture the distal fourth metacarpal neck is stable in alignment from prior exa m, with minimal interval healing. Chronic, healed fracture deformity of the fifth metacarpal neck is unchanged. Joint spaces are preserved. Soft tissues are unremarkable. Impression: Minimal interval healing of transverse fracture of the distal fourth metacarpal neck. Old, healed fracture deformity of the fifth metacarpal. Reviewed, dictated and finalized at location M. WALL MINING MACHINE TENDER Impression: Minimal interval healing of transverse fracture of the distal fourth metacarpal neck. Old, healed fracture deformity of the fifth metacarpal.
== END 2023-04-27 08:23 | disposition home or self-care (01) ==
LOC: CHSIMG 08:24
PROVIDERS: PCP Family Medicine; Visit Provider Orthopaedic Surgery
DX: S62.394D Other fracture of fourth metacarpal bone, right hand, subsequent encounter for fracture with routine healing (principal)
CPT/HCPCS: 73130

== ENCOUNTER 2023-05-25 09:07 | Outpatient (CLI) | payer OTHER, SELFPAY ==
[2023-05-25 09:19] LABS: Basophils Absolute Auto 0.02 K/mm3 (0.00-0.10); Basophils Percent Auto 0.3 % (0.0-1.0); Eosinophils Absolute Auto 0.21 K/mm3 (0.02-0.50); Eosinophils Percent Auto 2.6 % (1.0-6.0); Hematocrit 49.3 % (40.0-54.0); Hemoglobin 16.3 g/dL (14.0-18.0); Immature Granulocyte Absolute 0.02 K/mm3 (0.00-0.00); Immature Granulocyte Percent A 0.3 % (0.0-0.0); Lymphocytes Absolute Auto 1.69 K/mm3 (1.10-4.50); Lymphocytes Percent Auto 21.2 % (18.0-42.0); Mean Corpuscular HGB Conc 33.1 g/dL (32.0-36.0); Mean Corpuscular Hemoglobin 29.9 pg (27.0-31.0); Mean Corpuscular Volume 90.5 fL (78.0-102.0); Mean Platelet Volume 10.5 fl (8.7-11.0); Monocytes Absolute Auto 0.47 K/mm3 (0.10-0.90); Monocytes Percent Auto 5.9 % (2.0-11.0); Neutrophils Absolute Auto 5.6 K/mm3 (1.7-7.2); Neutrophils Percent Auto 69.7 % (50.0-70.0); Platelet Count Result 208 K/mm3 (150-420); Red Blood Count 5.45 M/mm3 (4.70-6.10); Red Cell Distribution Width 14.3 % (11.6-14.4)
[2023-05-25 10:17] LABS: Alanine Aminotransferase 37 U/L (16-63); Albumin Level 3.7 g/dL (3.4-5.0); Alkaline Phosphatase 89 U/L (46-116); Anion Gap 12 mmol/L (8-16); Aspartate Amino Transferase 16 U/L (15-37); Bilirubin,Total 0.7 mg/dL (0.00-1.00); Blood Urea Nitrogen 23 mg/dL (7-18); Calcium 9.1 mg/dL (8.5-10.1); Carbon Dioxide 27 mmol/L (21-32); Chloride 104 mmol/L (98-108); Estimated Glomerular Filt Rate > 60; Glucose 88 mg/dL (70-99); Osmolality Calculated 298 mOsm/kg (285-295); Potassium 4.7 mmol/L (3.5-5.1); Sodium 143 mmol/L (136-145); Thyroid Stimulating Hormone Reflex 1.62 u/IU/mL (0.36-3.74); Total Protein 7.2 g/dL (6.4-8.2)
== END 2023-05-25 09:08 | disposition home or self-care (01) ==
LOC: CHSLAB 09:08
PROVIDERS: PCP Family Medicine; Visit Provider Family Medicine
DX: E11.9 Type 2 diabetes mellitus without complications (principal); R53.82 Chronic fatigue, unspecified
CPT/HCPCS: 36415; 80053; 84443; 85025

== ENCOUNTER 2023-06-24 19:56 | Outpatient (CLI) | payer OTHER, SELFPAY ==
--- NOTE | 2023-06-25 18:51 | WPDSLEEPSTUD ---
Sleep Study Date of Study: 06/24/23 Ordering Provider: Dick Brower DO Interpreting Physician: Lorelei Denton MD Sleep Study Type: Split Polysomnogram Height: 1.98 m Weight: 131.542 kg Body Mass Index: 33.5 Neck Circumference (inches): 18 [place]: 9 Reason for Sleep Study Weight gain recently, feels depressed, cannot sleep well Has a prior history of sleep apnea, no longer uses PAP therapy for the last several years Was treated in [facility], moved to this area with difficulties getting on CPAP again Sleep History Milton Strickland is a 47-year-old man with a history of obstructive sleep apnea, stopped using his PAP machine several years ago. His sleep quality is poor, he frequently snores loudly and he does not awaken feeling refreshed. He occasionally awakens from sleep feeling short of breath. He occasionally wakes at night with heartburn, belching or coughing.??He occasionally has trouble sleeping when he has a cold. He rarely wakes up gasping for breath during the night. He occasionally has breathing problems at night. He occasionally sweats excessively at night. He never notices his heart pounding or beating irregularly during the night. He occasionally falls asleep during the day. He occasionally falls asleep involuntarily, never falls asleep while driving. He never experiences loss of muscle tone with strong emotion. He never has daytime difficulty at work due to excessive sleepiness. He never feels paralyzed on waking or falling asleep. He occasionally experiences vivid dreams upon waking or falling asleep. He never feels afraid of going to sleep. He rarely has nightmares. He rarely recalls his dreams. He occasionally has thoughts racing through his mind. He occasionally feels sad or depressed. He rarely feels anxiety. He never notices parts of his body jerk. He never kicks during the night. He never feels crawling or aching feelings in his legs. He rarely feels leg pain at night. He never has morning jaw pain, never grinds his teeth at night. He constantly feels bothered by pain during the day, occasionally awakened by pain during the night. He constantly wakes up feeling stiff in the morning, and he occasionally wakes feeling sore or achy. He occasionally awakens with pain in his neck, spine, or joints. He has fatigue, memory problems and concentration difficulties. Normal bedtime is Between midnight and 2:00 a.m., falling asleep within 20 minute, waking once at night to go to the bathroom, returns to sleep within 5 minutes but sometimes as long as 30 minutes. Normal wake time is between 5:00 a.m. and 9:00 a.m.. He maintains the same schedule on the weekends. He typically gets between 4 to 6 hours of sleep per night. He takes naps in the day, sometimes wakes up refreshed after a 10-15 minute nap. Habits:??Tobacco: Two packs per day Caffeine: 4 sodas per day. Alcohol: occasionally Recreational substances: none PMFSH Past Medical History Medical History Chronic back pain Cubital tunnel syndrome on right Kidney stones, calcium oxalate MDD (major depressive disorder) KARTHIKEYAN (obstructive sleep apnea) Surgical History Surgical History History of back surgery History of hip surgery Family History Family History Mother Family history of type 2 diabetes mellitus Unknown Depression Arthritis Social History Social History Smoking packs per day: 1.5 Smoking cigarettes per day: 30.0 Years smoked: 25 Smoking pack-years: 37.50 Smoking status: Current every day smoker Tobacco type: cigarettes Alcohol intake: current Substance use: never Substance use type: does not use Living arrangements: with family Gender identity (if verbalized by the patient): Male Spiritual care con
[2023-06-25 19:04] VITALS: BMI 33.5
--- NOTE | 2023-06-26 08:51 | SLEEP ---
DME pt chose was [facility]
== END 2023-06-25 06:28 | disposition home or self-care (01) ==
LOC: CHSCSM 19:57
PROVIDERS: PCP Family Medicine; Visit Provider Family Medicine
DX: G47.33 Obstructive sleep apnea (adult) (pediatric) (principal)
CPT/HCPCS: 95811

== ENCOUNTER 2023-09-16 16:45 | Emergency (ER) | payer OTHER, SELFPAY ==
[2023-09-16] VITALS (8 sets, daily range): BP systolic 113–130; BP diastolic 57–88; PULSE 90–113; RESP 18; TEMP 36.3; O2SAT 92–98
--- NOTE | ~2023-09-16 | XR_ITS ---
XR chest 2V Ordering provider: Roque Scott MD History: 48 years Male with . dyspnea,SOB,COUGH . Comparison: None. FINDINGS: MEDIASTINUM: The cardiac silhouette is not enlarged. LUNGS: No infiltrates, effusions or pneumothorax. Slightly prominent markings in the lower lobes. OTHER: No free air under the diaphragm. IMPRESSION: No acute cardiopulmonary pathology. Reviewed, dictated and finalized at location A.
--- NOTE | 2023-09-16 16:56 | ECG_ITS ---
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 Measurements Intervals [place] Rate: 97 P: 67 IA: 126 QRS: 98 QRSD: 93 T: 24 QT: 329 QTc: 419 Interpretive Statements SINUS RHYTHM BORDERLINE RIGHT AXIS DEVIATION [QRS AXIS > 90] NONSPECIFIC T-WAVE ABNORMALITY No previous ECG available for comparison Electronically Signed On 09-17-2023 13:32:23 CDT by Devante Avina M.D.
--- NOTE | 2023-09-16 16:59 | ED.GENADULT ---
HPI - General Adult General Chief complaint: Upper Respiratory Infection Stated complaint: cough History of Present Illness HPI narrative: This is a 48-year-old male history of structure of sleep apnea presenting for cough. Patient has had a cough for the last 2 weeks. He denies fevers chills chest pain. He does have some dyspnea on exertion which is not normal for him. He also notes slight swelling his ankles. Patient's is sick with similar symptoms and was told by a physician that she may have pneumonia. Related Data Allergies Allergy/AdvReac Type Severity Reaction Status Date / Time No Known Allergies Allergy Verified 09/16/23 16:56 [facility] Past Medical History Medical History Chronic back pain Cubital tunnel syndrome on right Kidney stones, calcium oxalate MDD (major depressive disorder) KARTHIKEYAN (obstructive sleep apnea) Surgical History Surgical History History of back surgery History of hip surgery Family History Family History Mother Family history of type 2 diabetes mellitus Unknown Depression Arthritis Social History Social History Smoking packs per day: 1.5 Smoking cigarettes per day: 30.0 Years smoked: 25 Smoking pack-years: 37.50 Smoking status: Current every day smoker Tobacco type: cigarettes Alcohol intake: current Substance use: never Substance use type: does not use Living arrangements: with family Gender identity (if verbalized by the patient): Male Spiritual care concerns: No Exam Narrative: APPEARANCE: No apparent distress. Head: atraumatic. EYES: EOMI, NOSE: Atraumatic NECK: Trachea midline RESPIRATORY: No increased rate of breathing, speaking full sentences, slight expiratory wheezing in all brown CARDIOVASCULAR: tachycardic, no peripheral edema ABDOMINAL: Non-distended MUSCULOSKELETAl: No obvious deformities NEURO: Alert. Moving 4/4 extremities SKIN:: Warm, dry. Normal color PSYCHIATRIC: Normal affect Course Vital Signs Vital signs: Vital Signs Temperature 97.4 F L 09/16/23 16:45 Pulse Rate 113 H 09/16/23 16:45 Respiratory Rate 18 09/16/23 16:45 Blood Pressure 130/88 09/16/23 16:45 Pulse Oximetry 96 09/16/23 16:45 Oxygen Delivery Room Air 09/16/23 16:45 Temperature 97.4 F L 09/16/23 16:45 Pulse Rate 110 H 09/16/23 17:21 Respiratory Rate 18 09/16/23 17:21 Blood Pressure 130/88 09/16/23 16:45 Pulse Oximetry 98 09/16/23 17:21 Oxygen Delivery Room Air 09/16/23 16:58 Medical Decision Making [facility] Narrative Medical decision making narrative: -Course: 48-year-old male presenting with 2 weeks of cough. Patient had some mild wheezing on exam was given a breathing treatment to see if that improved his symptoms. Patient did not notice much improvement. Heart rate improved with fluids. the rest of his workup including laboratory studies, ekg, chest x-ray, and viral swabs was unremarkable. Patient been having symptoms for 2 weeks and believes he is getting worse. Discussed role of antibiotics for what is most likely viral syndrome and the patient would like a course of antibiotics. These were provided. Patient was instructed to follow-up with his primary care physician. Given return precautions. 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 -Independent interpretation of studies: labs reviewed. Slight bump in kidney function from baseline. Patient given fluid resuscitation in the ED. Chest x-ray unremarkable. Independent EKG interpretation: Rhythm [sinus], Rate [97], Davy -[norm
[2023-09-16] MEDS: IPRATROPIUM 0.5 MG/ALBUTEROL SULFATE 2.5 MG AMPUL.NEB 3 ML 6 ML INHALATION (17:04)
[2023-09-16] MEDS: SODIUM CHLORIDE 0.9% IV 1,000 ML 999 ML IV CONT (17:10)
[2023-09-16] MEDS: dexAMETHasone SOD PHOS INJ 10 MG/ML 1 ML VIAL IV PUSH (17:12)
[2023-09-16] MEDS: KETOROLAC 15 MG/ML VIAL (*BKC) IV PUSH (17:13)
[2023-09-16] MEDS: ACETAMINOPHEN 500 MG TABLET 1000 MG PO (17:14)
[2023-09-16 17:18] LABS: Basophils Absolute Auto 0.02 K/mm3 (0.00-0.10); Basophils Percent Auto 0.2 % (0.0-1.0); Eosinophils Absolute Auto 0.22 K/mm3 (0.02-0.50); Eosinophils Percent Auto 2.4 % (1.0-6.0); Hematocrit 46.3 % (40.0-54.0); Hemoglobin 15.5 g/dL (14.0-18.0); Immature Granulocyte Absolute 0.02 K/mm3 (0.00-0.00); Immature Granulocyte Percent A 0.2 % (0.0-0.0); Lymphocytes Percent Auto 22.6 % (18.0-42.0); Mean Corpuscular HGB Conc 33.5 g/dL (32-36); Mean Corpuscular Hemoglobin 30.1 pg (27.0-31.0); Mean Corpuscular Volume 89.9 fL (78.0-102.0); Mean Platelet Volume 10.6 fl (8.7-11.0); Monocytes Absolute Auto 0.64 K/mm3 (0.10-0.90); Monocytes Percent Auto 6.9 % (2.0-11.0); Neutrophils Absolute Auto 6.29 K/mm3 (1.70-7.20); Neutrophils Percent Auto 67.7 % (50.0-70.0); Platelet Count Result 191 K/mm3 (150-420); Red Blood Count 5.15 M/mm3 (4.70-6.10); Red Cell Distribution Width 13.9 % (11.6-14.4); White Blood Count 9.3 K/mm3 (4.8-10.8)
[2023-09-16 17:39] LABS: Alanine Aminotransferase 47 U/L (16-63); Albumin Level 3.4 g/dL (3.4-5.0); Alkaline Phosphatase 81 U/L (46-116); Anion Gap 8 mmol/L (4-12); Aspartate Amino Transferase 23 U/L (15-37); Bilirubin,Total 0.8 mg/dL (0.00-1.00); Blood Urea Nitrogen 21 mg/dL (7-18); Carbon Dioxide 28 mmol/L (21-32); Chloride 105 mmol/L (98-108); Estimated CRCL calculation 89 ml/min; Estimated Glomerular Filt Rate 53; Glucose 103 mg/dL (70-99); NT Pro B Type Natriuretic Pept < 11 pg/mL (0-125); Osmolality Calculated 295 mOsm/kg (285-295); Potassium 4.2 mmol/L (3.5-5.1); Sodium 141 mmol/L (136-145); Total Protein 6.8 g/dL (6.4-8.2)
[2023-09-16 17:56] LABS: SARS-CoV-2 RNA PCR Negative (Negative)
[2023-09-16 17:58] LABS: Influenza A QL RT-PCR Negative (Negative); Influenza B QL RT-PCR Negative (Negative); RSV RNA, RT-PCR Negative (Negative)
== END 2023-09-16 18:24 | disposition home or self-care (01) ==
PROVIDERS: Emergency Provider Emergency Medicine; PCP Family Medicine
DX: J40 Bronchitis, not specified as acute or chronic (principal); F17.210 Nicotine dependence, cigarettes, uncomplicated; Z20.822 Contact with and (suspected) exposure to COVID-19
CPT/HCPCS: 36415; 71046; 80053; 83880; 85025; 87637; 93005; 94640; 96361; 96374; 96375; 99284; J1100; J1885; J7030

== ENCOUNTER 2024-06-19 18:04 | Emergency (ER) | payer BC, SELFPAY ==
[2024-06-19 18:04] VITALS: BP 138/91; PULSE 91; RESP 14; TEMP 36.6; O2SAT 98
--- OUTSIDE RECORDS SUMMARY | 2024-06-19 18:10 | XMS_ITS | Continuity of Care Document ---
Author Organization [facility] Address [address] [place] [address] Phone Care Team Providers Care Machine Dyer Name Role Phone Ayleen Morton PT Unavailable Unavailabl e Procedures Procedure Date PT Re-evaluation Therapeutic Exercise Therapeutic Activities Neuromuscular Re-Ed Therapeutic Exercise Therapeutic Activities Neuromuscular Re-Ed Therapeutic Exercise Therapeutic Activities Neuromuscular Re-Ed Therapeutic Exercise Therapeutic Activities Neuromuscular Re-Ed Therapeutic Exercise Therapeutic Activities Neuromuscular Re-Ed Therapeutic Exercise Therapeutic Activities Neuromuscular Re-Ed Hot or Cold Pack Therapeutic Exercise Therapeutic Activities Neuromuscular Re-Ed Therapeutic Exercise Therapeutic Activities Neuromuscular Re-Ed Therapeutic Exercise Therapeutic Activities Neuromuscular Re-Ed Therapeutic Exercise Neuromuscular Re-Ed PT Evaluation High Complexity Therapeutic Exercise Neuromuscular Re-Ed Hot or Cold Pack Advance Directives Directive Yes / No Effective Date File Name No Information Encounters Encounter Description Practice Location Reason(s) For Visit Diagnoses Date Provider Providers Copied on Encounter [facility], [address] [place] [address] [address], [place], [place], [id number], [place] tel:[phone] [place] Low back painAbnormal postureWeakne ssOth disrd of synovium and tendon, unspecified siteUnsp thoracic, thoracolum and lumbosacr intvrt disc disorder 8 Niederhoffer Ayleen. . Referring Provider: Parker Fernández, [address] [facility] [address], [place], [address]. tel:[phone] [facility] [facility], [place], [place], [address], tel:[phone] [place] Low back painAbnormal postureWeakne ssOth disrd of synovium and tendon, unspecified siteUnsp thoracic, thoracolum and lumbosacr intvrt disc disorder 8 Niederhoffer Ayleen. . Referring Provider: Parker Fernández, [address] [facility] [address], [place], [address]. tel:[phone] [facility] [facility], [place], [place], [address], [place] tel:[phone] [place] Low back painAbnormal postureWeakne ssOth disrd of synovium and tendon, unspecified siteUnsp thoracic, thoracolum and lumbosacr intvrt disc disorder 8 Niederhoffer Ayleen. . Referring Provider: Parker Fernández, [address] [facility] [address], [place], [address]. tel:[phone] [facility] [facility] [address], [place], [place], [address], [place] tel:[phone] [place] Low back painAbnormal postureWeakne ssOth disrd of synovium and tendon, unspecified siteUnsp thoracic, thoracolum and lumbosacr intvrt disc disorder 8 Niederhoffer Ayleen. . Referring Provider: Parker Fernández, [address] [facility] [address], [place], [address]. tel:[phone] [facility], [place], [place], [id number], [place] tel:[phone] [place] Low back painAbnormal postureWeakne ssOth disrd of synovium and tendon, unspecified siteUnsp thoracic, thoracolum and lumbosacr intvrt disc disorder Oct-0 3 8 Niederhoffer Ayleen. . Referring Provider: Parker Fernández, [address] [facility] [address], [place], [address]. tel:[phone] [facility] [address] [facility] [address], [place], [place], [id number], [place] tel:[phone] [place] Low back painAbnormal postureWeakne ssOth disrd of synovium and tendon, unspecified siteUnsp thoracic, thoracolum and lumbosacr intvrt disc disorder Jan-0 8 Niederhoffer Ayleen. . Referring Provider: Parker Fernández, [address] [facility] [address], [place], [address]. tel:[phone] [facility] [facility] [address] [address], [place], [place], [address], [place] tel:[phone] [place] Low back painAbnormal postureWeakne ssOth disrd of synovium and tendon, unspecified siteUnsp thoracic, thoracolum and lumbosacr intvrt disc disorder Sep-2 8 Niederho[place] Ayleen. . Referring Provider: Parker Fernández [address] [facility] [address], [place], [address]. tel:[phone] [facility] [facility] [address], [place], [place], [address], [place] tel:[phone] [place] Low back painAbnormal postureWeakne ssOth disrd of synovium and tendon, unspecified siteUnsp thoracic, thoracolum and lumbosacr intvrt disc disorder Sep-2 8 [place], [place], [place]. Referring Provider: Parker Fernández [address] [facility] [address], [place], [address]. tel:[phone] [facility] [address] [place], [place] [address], [place], [place], [id number], tel:[phone] [place] Low back painAbnormal postureWeakne ssOth disrd of synovium and tendon, unspecified siteUnsp thoracic, thoracolum and lumbosacr intvrt disc disorder Sep-1 8-201 8 Niederhoffer Ayleen. . Referring Provider: Aaliyah Trejo0 [facility] [address], [place], [address]. tel:[phone] [facility] [address] [place], [place] [address], [place], [place], [address], tel:[phone] [place] Low back painAbnormal postureWeakne ssOth disrd of synovium and tendon, unspecified siteUnsp thoracic, thoracolum and lumbosacr intvrt disc disorder Sep-1 3201 8 [place] Joaquina. . Referring Provider: Parker Fernández [address] [facility] [address], [place], [address]. tel:[phone] [facility] [address] [place], [place] [address], [place], [place], [address], tel:[phone] [place] Low back painAbnormal postureWeakne ssOth disrd of synovium and tendon, unspecified siteUnsp thoracic, thoracolum and lumbosacr intvrt disc disorder Sep-1 0201 8 Niederhoffer Ayleen. . Referring Provider: Aaliyah Trejo0 [facility] [address], [place], [address]. tel:[phone] Family History Family Member Type Diagnosis Age At Onset No Information Payers Payer name Insurance type Covered green party ID Rajat velardebranden(s) Financial Assistance [id number] Social History Type Description Quantity Date Captured Comments Sex Male Smoking Status No Information Chief Complaint And Reason For Visit No Information Reason For Referral Reason For Referral No Information History Of Present Illness Encounter Date Complaint History Of Prese nt Illness No Information Functional Status Date Functional Assessmen t No Information Instructions Date Instruction Additional Infor mation No Information Assessments Type Assessment Date No Information Patient Care Teams Name Effective Dates (start - stop) Status Members No Information
--- NOTE | 2024-06-19 18:16 | ED_ITS ---
HPI - General Adult General Chief complaint: Urogenital-Male Stated complaint: swollen testicle Time Seen by Provider: 06/19/24 18:10 History of Present Illness HPI narrative: Milton is a 48M with a PMH of chronic back pain, COPD, KARTHIKEYAN and tobacco abuse that presented to the ED with a few hours of left scrotal swelling and tenderness. No dysuria, fevers, hematuria or systemic symptoms. Related Data Allergies Allergy/AdvReac Type Severity Reaction Status Date / Time No Known Allergies Allergy Verified 03/15/24 08:02 Review of Systems 2 Review of Systems: All systems reviewed & are unremarkable except as noted in HPI and below PMFSH Past Medical History Medical History KARTHIKEYAN (obstructive sleep apnea) MDD (major depressive disorder) Chronic back pain Cubital tunnel syndrome on right Kidney stones, calcium oxalate Surgical History Surgical History History of back surgery History of hip surgery Family History Family History Mother Family history of type 2 diabetes mellitus Unknown Depression Arthritis Social History Social History Smoking packs per day: 1.5 Smoking cigarettes per day: 30.0 Years smoked: 25 Smoking pack-years: 37.50 Smoking status: Current every day smoker Tobacco type: cigarettes Alcohol intake: current Substance use: never Substance use type: does not use Living arrangements: with family Gender identity (if verbalized by the patient): Male Spiritual care concerns: No Exam 2 Const: General: cooperative, healthy appearing, comfortable, no acute distress, well developed, alert, awake and Physically active O rientation/consciousness: oriented to person, oriented to place and oriented to time HENMT: Head: normal to inspection, normocephalic and atraumatic Ears: h earing grossly normal bilaterally and external ears normal Face/Nose/Sinus: N ormal external nose present Eyes: General: appearance normal, both eyes and all related structures P eriorbital: periorbital findings normal Sclera: sclerae normal Pupils: E qual, round and reactive pupils present Neck: Neck: normal visual inspection Chest: Chest palpation & inspection: normal inspection of the chest Resp: Effort & Inspection: normal respiratory effort, able to speak in complete sentences and no respiratory distress Cardio: Jugular venous distension: no JVD : Other: epididymitis was TTP on the left side Skin: General skin exam: normal color and no rashes or lesions noted Neuro: General: oriented to person, oriented to place and oriented to time Cranial nerves: Yes Equal, round and reactive pupils present Extrem: General: normal to inspection Course Course Emergency Course: Labs and UA largely unremarkable. Given a dose of levofloxacin Vital Signs Vital signs: Vital Signs Temperature 97.9 F 06/19/24 18:04 Pulse Rate 91 06/19/24 18:04 Respiratory Rate 14 06/19/24 18:04 Blood Pressure 138/91 H 06/19/24 18:04 Pulse Oximetry 98 06/19/24 18:04 Oxygen Delivery Room Air 06/19/24 18:04 Temperature 97.9 F 06/19/24 18:04 Pulse Rate 91 06/19/24 18:04 Respiratory Rate 14 06/19/24 18:04 Blood Pressure 138/91 H 06/19/24 18:04 Pulse Oximetry 98 06/19/24 18:04 Oxygen Delivery Room Air 06/19/24 18:04 Medical Decision Making Vital Signs Vital Signs: Vital Signs Temperature 97.9 F 06/19/24 18:04 Pulse Rate 91 06/19/24 18:04 Respiratory Rate 14 06/19/24 18:04 Blood Pressure 138/91 H 06/19/24 18:04 Pulse Oximetry 98 06/19/24 18:04 Oxygen Delivery Room Air 06/19/24 18:04 Temperature 97.9 F 06/19/24 18:04 Pulse Rate 91 06/19/24 18:04 Respiratory Rate 14 06/19/24 18:04 Blood Pressure 138/91 H 06/19/24 18:04 Pulse Oximetry 98 06/19/24 18:04 Oxygen Delivery Room Air 06/19/24 18:04 Lab Data 06/19/24 18:32 06/19/24 18:32 Labs: Lab Results 06/19/24 Range/Units 18:32 WBC 7.7 (4.8-10.8) K/mm3 RBC 5.09 (4.70-6.10) M/mm3 Hgb 15.2 (14.0-18.0) g/dL Hct 45.7 (40.0-54.0) % MCV 89.8 (78.0-102.0) fL MCH 29.9 (27.0-31.0) pg MCHC 33.3 (32-36) g/dL RDW 13.3 (11.6-14.4) % Plt Count 203 (150-420) K/mm3 MPV 10.8 (8.7-11.0) fl Immature Gran % (Auto) 0.4 H (0.0-0.0) % Neut % (Auto) 68.1 (50.0-70.0) % Lymph % (Auto) 23.6 (18.0-42.0) % [place] % (Auto) 5.4 (2.0-11.0) % Eos % (Auto) 2.1 (1.0-6.0) % Baso % (Auto) 0.4 (0.0-1.0) % Lymph # (Auto) 1.83 (1.10-4.50) K/mm3 [place] # (Auto) 0.42 (0.10-0.90) K/mm3 Eos # (Auto) 0.16 (0.02-0.50) K/mm3 Baso # (Auto) 0.03 (0.00-0.10) K/mm3 Abs Immat Gran (auto) 0.03 H (0.00-0.00) K/mm3 Absolute Neuts (auto) 5.27 (1.70-7.20) K/mm3 Absolute Nucleated RBC 0.00 (0.00-0.00) K/mm3 Nucleated RBC % 0.0 (0-0.0) % Sodium 140 (136-145) mmol/L Potassium 3.7 (3.5-5.1) mmol/L Chloride 101 (98-108) mmol/L Carbon Dioxide 28 (21-32) mmol/L Anion Gap 11 (4-12) mmol/L BUN 13 (7-18) mg/dL Creatinine 1.19 (0.70-1.30) mg/dL Estim Creat Clear Calc 103 ml/min Estimated GFR > 60 (59 - ) Glucose 91 (70-99) mg/dL Calculated Osmolality 290 (285-295) mOsm/kg Calcium 9.1 (8.5-10.1) mg/dL Total Bilirubin 0.8 (0.00-1.00) mg/dL AST 17 (15-37) U/L ALT 33 (16-63) U/L Alkaline Phosphatase 107 (46-116) U/L C-Reactive Protein 0.9 (0.0-0.9) mg/dL Total Protein 7.2 (6.4-8.2) g/dL Albumin 3.8 (3.4-5.0) g/dL Discharge Plan Discharge Clinical Impression: Acute epididymitis Patient Disposition: Home, Self-Care Condition: Stable Instructions: Epididymitis (ED) Patient Language: Polish Prescriptions: New levofloxacin 500 mg tablet 500 mg PO DAILY Qty: 9 0RF No Action bupropion HCl 150 mg tablet sustained-release 12 hr 150 mg PO BID Qty: 120 0RF nicotine 21-14-7 mg/24 hr patch, TD daily, sequential See Rx Instructions transdermal .COMPLEX Qty: 56 0RF Rx Instructions: apply 1-21 mg NICOTINE PATCH daily for 28 days; follow with 1-14 mg PATCH daily for 14 days, then 1-7mg PATCH daily for 14 days transdermal albuterol sulfate 90 mcg/actuation HFA aerosol inhaler 1 puff inhalation Q4H PRN (Reason: shortness of breath or wheezing) Qty: 8.5 0RF hydrocodone-acetaminophen 10-325 mg tablet 1 tablet PO Q8H PRN (Reason: pain) Qty: 30 0RF Follow-up/Referrals: Dick Brower DO [Primary Care Provider] -
--- OUTSIDE RECORDS SUMMARY | 2024-06-19 18:29 | XMS_ITS | Continuity of Care Document ---
Author Organization [facility] Address [address] [place] [address] Phone Care Team Providers Care Engagement Manager Name Role Phone Ayleen Morton PT Unavailable [...] Diagnoses Date Provider Providers Copied on Encounter [facility], [address] [place] [address] [address], [place], [place], [id number], [place] tel:[phone] [place] Low back painAbnormal postureWeakne ssOth disrd of synovium and tendon, unspecified siteUnsp thoracic, thoracolum and lumbosacr intvrt disc disorder 8 Niederhoffer Ayleen. . Referring Provider: Parker Fernández, [address] [facility] [address], [place], [address]. tel:[phone] [facility] [facility], [place], [place], [address], tel:[phone] [place] Low back painAbnormal postureWeakne ssOth disrd of synovium and tendon, unspecified siteUnsp thoracic, thoracolum and lumbosacr intvrt disc disorder 8 Niederhoffer Ayleen. . Referring Provider: Parker Fernández, [address] [facility] [address], [place], [address]. tel:[phone] [facility] [facility], [place], [place], [address], [place] tel:[phone] [place] Low back painAbnormal postureWeakne ssOth disrd of synovium and tendon, unspecified siteUnsp thoracic, thoracolum and lumbosacr intvrt disc disorder 8 Niederhoffer Ayleen. . Referring Provider: Parker Fernández, [address] [facility] [address], [place], [address]. tel:[phone] [facility] [facility], [place], [place], [address], [place] tel:[phone] [place] Low back painAbnormal postureWeakne ssOth disrd of synovium and tendon, unspecified siteUnsp thoracic, thoracolum and lumbosacr intvrt disc disorder 8 Niederhoffer Ayleen. . Referring Provider: Parker Fernández, [address] [facility] [address], [place], [address]. tel:[phone] [facility], [place], [place], [address], [place] tel:[phone] [place] Low back painAbnormal postureWeakne ssOth disrd of synovium and tendon, unspecified siteUnsp thoracic, thoracolum and lumbosacr intvrt disc disorder Oct-0 3 8 Niederhoffer Ayleen. . Referring Provider: Parker Fernández, [address] [facility] [address], [place], [address]. tel:[phone] [facility] [address] [facility], [place], [place], [address], [place] tel:[phone] [place] Low back painAbnormal postureWeakne ssOth disrd of synovium and tendon, unspecified siteUnsp thoracic, thoracolum and lumbosacr intvrt disc disorder Jan-0 8 Niederhoffer Ayleen. . Referring Provider: Parker Fernández, [address] [facility] [address], [place], [address]. tel:[phone] [facility] [facility], [place], [place], [address], [place] tel:[phone] [place] Low back painAbnormal postureWeakne ssOth disrd of synovium and tendon, unspecified siteUnsp thoracic, thoracolum and lumbosacr intvrt disc disorder Sep-2 8 Niederhoffer Ayleen. . Referring Provider: Parker Fernández [address] [facility] [address], [place], [address]. tel:[phone] [facility] [facility], [place], [address], [place] tel:[phone] [place] Low back painAbnormal postureWeakne ssOth disrd of synovium and tendon, unspecified siteUnsp thoracic, thoracolum and lumbosacr intvrt disc disorder Sep-2 8 [place], [place], [place]. Referring Provider: Parker Fernández [address] [facility] [address], [place], [address]. tel:[phone] [facility] [address] [place], [place] [address], [place], [place], [address], tel:[phone] [place] Low back painAbnormal postureWeakne ssOth disrd of synovium and tendon, unspecified siteUnsp thoracic, thoracolum and lumbosacr intvrt disc disorder Sep-1 8-201 8 Niederhoffer Ayleen. . Referring Provider: Aaliyah Trejo0 [facility] [address], [place], [address]. tel:[phone] [facility] [address] [place], [place] [address], [place], [place], [address], tel:[phone] [place] Low back painAbnormal postureWeakne ssOth disrd of synovium and tendon, unspecified siteUnsp thoracic, thoracolum and lumbosacr intvrt disc disorder Sep-1 3201 8 [place] Joaquina. . Referring Provider: Parker Fernández [address] [facility] [address], [place], [address]. tel:[phone] [facility] [address] [place], [place] [address], [place], [place], [id number], tel:[phone] [place] Low back painAbnormal postureWeakne ssOth disrd of synovium and tendon, unspecified siteUnsp thoracic, thoracolum and lumbosacr intvrt disc disorder Sep-1 0201 8 Niederhoffer Ayleen. . Referring Provider: Aaliyah Trejo0 [facility] [address], [place], [address]. tel:[phone] Family History Family Member Type Diagnosis Age At Onset No Information Payers Payer name Insurance type Covered republican ID Rajat velardebranden(s) Financial Assistance 09 00 [...]
[2024-06-19 18:38] LABS: Basophils Absolute Auto 0.03 K/mm3 (0.00-0.10); Basophils Percent Auto 0.4 % (0.0-1.0); Eosinophils Absolute Auto 0.16 K/mm3 (0.02-0.50); Eosinophils Percent Auto 2.1 % (1.0-6.0); Hematocrit 45.7 % (40.0-54.0); Hemoglobin 15.2 g/dL (14.0-18.0); Immature Granulocyte Absolute 0.03 K/mm3 (0.00-0.00); Immature Granulocyte Percent A 0.4 % (0.0-0.0); Lymphocytes Absolute Auto 1.83 K/mm3 (1.10-4.50); Lymphocytes Percent Auto 23.6 % (18.0-42.0); Mean Corpuscular HGB Conc 33.3 g/dL (32-36); Mean Corpuscular Hemoglobin 29.9 pg (27.0-31.0); Mean Corpuscular Volume 89.8 fL (78.0-102.0); Mean Platelet Volume 10.8 fl (8.7-11.0); Monocytes Absolute Auto 0.42 K/mm3 (0.10-0.90); Monocytes Percent Auto 5.4 % (2.0-11.0); Neutrophils Absolute Auto 5.27 K/mm3 (1.70-7.20); Neutrophils Percent Auto 68.1 % (50.0-70.0); Platelet Count Result 203 K/mm3 (150-420); Red Blood Count 5.09 M/mm3 (4.70-6.10); Red Cell Distribution Width 13.3 % (11.6-14.4); White Blood Count 7.7 K/mm3 (4.8-10.8)
[2024-06-19 18:51] LABS: Alanine Aminotransferase 33 U/L (16-63); Albumin Level 3.8 g/dL (3.4-5.0); Alkaline Phosphatase 107 U/L (46-116); Anion Gap 11 mmol/L (4-12); Aspartate Amino Transferase 17 U/L (15-37); Bilirubin,Total 0.8 mg/dL (0.00-1.00); Blood Urea Nitrogen 13 mg/dL (7-18); CRP 0.9 mg/dL (0.0-0.9); Calcium 9.1 mg/dL (8.5-10.1); Carbon Dioxide 28 mmol/L (21-32); Chloride 101 mmol/L (98-108); Estimated CRCL calculation 103 ml/min; Estimated Glomerular Filt Rate > 60; Glucose 91 mg/dL (70-99); Osmolality Calculated 290 mOsm/kg (285-295); Potassium 3.7 mmol/L (3.5-5.1); Sodium 140 mmol/L (136-145); Total Protein 7.2 g/dL (6.4-8.2)
--- NOTE | 2024-06-19 18:59 | PC.NURSE ---
report to mary anne wheeler.
[2024-06-19 19:21] LABS: Add Urine Microscopic? NO; Appearance Urine Clear (Clear); Bilirubin Urine Negative (Negative); Blood Urine Negative (Negative); Color Urine Light Yellow (Yellow); Glucose Urine UA Negative (Negative); Ketones Urine Negative (Negative); Leukocyte Esterase Ur Negative LEU/UL (Negative); Nitrate Urine Negative (Negative); Protein Urine Negative (Negative); Urobilinogen Urine 0.2 mg/dL (0.2-1.0)
[2024-06-19] MEDS: levoFLOXacin 500 MG TABLET PO (19:31)
[2024-06-19 19:39] VITALS: BP 124/82; PULSE 88; RESP 20; TEMP 36.6; O2SAT 98
== END 2024-06-19 19:39 | disposition home or self-care (01) ==
PROVIDERS: Emergency Provider Family Medicine; PCP Family Medicine
DX: N45.1 Epididymitis (principal); J44.9 Chronic obstructive pulmonary disease, unspecified; F17.210 Nicotine dependence, cigarettes, uncomplicated
CPT/HCPCS: 36415; 80053; 81003; 85025; 86140; 99283; A9270

== ENCOUNTER 2024-10-21 11:27 | Outpatient (CLI) | payer BC, SELFPAY ==
[2024-10-21 11:43] LABS: Hematocrit 48.8 % (40.0-54.0); Hemoglobin 16.4 g/dL (14.0-18.0); Immature Granulocyte Percent A 0.6 % (0.0-0.0); Lymphocytes Absolute Auto 1.99 K/mm3 (1.10-4.50); Mean Corpuscular HGB Conc 33.6 g/dL (32-36); Mean Corpuscular Hemoglobin 30.7 pg (27.0-31.0); Mean Corpuscular Volume 91.2 fL (78.0-102.0); Nucleated Red Blood Cells Absolute Auto 0.00 K/mm3 (0.00-0.00); Nucleated Red Blood Cells Perc 0.0 % (0-0.0); Platelet Count Result 216 K/mm3 (150-420); Red Blood Count 5.35 M/mm3 (4.70-6.10); White Blood Count 7.0 K/mm3 (4.8-10.8)
[2024-10-21 12:05] LABS: Alanine Aminotransferase 31 U/L (6-50); Albumin Level 4.0 g/dL (3.5-5.1); Alkaline Phosphatase 81 U/L (38-126); Anion Gap 5 mmol/L (4-12); Aspartate Amino Transferase 27 U/L (17-59); Bilirubin,Total 0.8 mg/dL (0.2-1.3); Blood Urea Nitrogen 17 mg/dL (9-20); Calcium 9.2 mg/dL (8.4-10.2); Carbon Dioxide 25 mmol/L (22-30); Chloride 109 mmol/L (98-107); Cholesterol 246 mg/dL (0-200); Estimated Glomerular Filt Rate > 60; Glucose 86 mg/dL (65-110); HDL Direct 54 mg/dL; Osmolality Calculated 288 mOsm/kg (285-295); Potassium 4.2 mmol/L (3.4-5.0); Sodium 139 mmol/L (137-145); Total Protein 6.7 g/dL (6.3-8.2); Triglycerides 142 mg/dL (<150)
[2024-10-21 12:36] LABS: Thyroid Stimulating Hormone Reflex 1.610 uIU/mL (0.465-4.68)
== END 2024-10-21 11:28 | disposition home or self-care (01) ==
LOC: CHSLAB 11:28
PROVIDERS: PCP Family Medicine; Visit Provider Family Medicine
DX: E03.9 Hypothyroidism, unspecified (principal); G47.30 Sleep apnea, unspecified
CPT/HCPCS: 36415; 80053; 80061; 84443; 85025